=== PATIENT | male | born 2000 | race African-American/Black ===

== ENCOUNTER 2024-07-14 15:13 | Emergency (ER) | payer MEDICAID ==
[~2024-07-14] VITALS: Ht 182.9 cm; Wt 118.0 kg
[2024-07-14 15:18] VITALS: BP 135/84; PULSE 79; RESP 16; TEMP 98.4; O2SAT 94
== END 2024-07-14 15:35 | disposition home or self-care (01) ==
LOC: ER 15:14
DX: G62.89 Other specified polyneuropathies (principal)
CPT/HCPCS: 99281

== ENCOUNTER 2024-12-08 04:01 | Emergency (ER) | payer MEDICAID, OTHER ==
[~2024-12-08] VITALS: Ht 188 cm; Wt 125.0 kg
[2024-12-08 04:06] VITALS: BP 148/67; PULSE 77; RESP 18; TEMP 98.6; O2SAT 95
[2024-12-08] MEDS: TETanus/Pertussis (Acell)/Diphther VAC/PF (Tdap-Adult) 0.5ml syringe IMVAC ONE (04:35)
== END 2024-12-08 05:29 | disposition home or self-care (01) ==
LOC: EEVIPCON 04:02 → ER 04:02
DX: S71.112A Laceration without foreign body, left thigh, initial encounter (principal); Y08.89XA Assault by other specified means, initial encounter; Y93.01 Activity, walking, marching and hiking; Y92.89 Other specified places as the place of occurrence of the external cause; Y99.8 Other external cause status
CPT/HCPCS: 12001; 99282; A6449